=== PATIENT | female | born 1970 | race Caucasian/White ===

== ENCOUNTER → 2018-07-10 | Outpatient (CLI) | payer OTHER ==
--- NOTE | 2018-07-10 10:51 | Diagnostic Imaging Report ---
INDICATION: Right knee pain. 4 views were obtained. Findings: The alignment is normal. There is no fracture or dislocation. Soft tissues are unremarkable. IMPRESSION: No focal abnormality in the right knee. Dictated by: Dictated on workstation # [id number]
== END ==
LOC: RAD FS 10:28
PROVIDERS: ATTEND Nurse Practitioner
DX: M25.561 Pain in right knee (principal)
CPT/HCPCS: 73562

== ENCOUNTER → 2018-10-16 | Outpatient (CLI) | payer OTHER ==
--- NOTE | 2018-10-16 10:40 | Diagnostic Imaging Report ---
TIME OF CURRENT STUDY: 10/16/2018 10:29 AM REASON FOR EXAM: RIGHT KNEE GIVES WAY COMPARISON: Right knee radiograph on 07/10/2018. FINDINGS: 3 views of the right knee demonstrate no acute fracture or dislocation. No focal osseous lesions are seen. No significant degenerative changes are present in the right knee. No large joint effusion. The visualized soft tissue structures are unremarkable. There are no radiopaque foreign bodies. IMPRESSION: 1. No acute fracture or dislocation in the right knee. Dictated by: Dictated on workstation # [id number]
== END ==
LOC: RAD FS 10:07
PROVIDERS: ATTEND Family Medicine
DX: M25.361 Other instability, right knee (principal)
CPT/HCPCS: 73562

== ENCOUNTER → 2018-10-28 | Outpatient (CLI) | payer OTHER ==
--- NOTE | 2018-10-28 15:32 | Diagnostic Imaging Report ---
INDICATION: Fall and right knee pain. TIME OF EXAM: 2:20 p.m. FINDINGS: Alignment is normal. Joint spaces are well maintained. The articular surfaces are smooth. No fracture, dislocation, or effusion is seen. IMPRESSION: No acute bony abnormality is detected. Dictated by: Dictated on workstation # [id number]
== END ==
LOC: RAD FS 14:09
PROVIDERS: ATTEND Nurse Practitioner
DX: S80.01XA Contusion of right knee, initial encounter (principal); W19.XXXA Unspecified fall, initial encounter
CPT/HCPCS: 73562

== ENCOUNTER → 2019-01-14 | Outpatient (CLI) | payer OTHER ==
--- NOTE | 2019-01-14 12:26 | Diagnostic Imaging Report ---
EXAMINATION: Magnetic resonance imaging of the right knee without intravenous contrast DATE: January 14, 2019. COMPARISON: October 28, 2018. INDICATION: 48-year-old female, fall on October 02, 2018. Persistent right knee pain. TECHNIQUE: Multiplanar, multisequence non contrast enhanced MR imaging was accomplished. FINDINGS: There are significant limitations of the exam relating to low camndb-mm-txpti ratio. Sagittal sequences are nearly nondiagnostic. MENISCI: There is a tear involving the anterior horn and body of the lateral meniscus. The medial meniscus is without definite tear. LIGAMENTS AND TENDONS: The anterior and posterior cruciate ligaments are intact. The medial collateral ligament is intact. The iliotibial band, mid third lateral capsular ligament, fibular collateral ligament, biceps femoris tendon and conjoined tendon are intact. The quadriceps tendon and patella ligament are intact. JOINT: There are broad areas of full-thickness cartilage loss of the lateral compartment. There is no obvious patellofemoral or medial compartment cartilage defect. There is a moderate-sized knee joint effusion without identified intra-articular body or prominent synovitis. BONE: There is edema-like signal in the lateral tibial plateau which is most likely degenerative related although early stress related marrow changes or bone contusion would be in the differential diagnosis. There are no pathognomonic signal changes of osteonecrosis. BURSAE AND SOFT TISSUES: There is a small Barba's cyst. There is nonspecific prepatellar subcutaneous edema. IMPRESSION: 1. Significantly limited exam. 2. Tear involving the internal horn and body of the lateral meniscus. 3. No identified medial meniscal tear. 4. Intact anterior and posterior cruciate ligaments. Additional ligaments and tendons are intact. 5. No acute fracture. Edema like signal in the lateral tibial plateau is most likely degenerative related although early stress-related changes or bone contusion is also considered. 6. Severe lateral compartment osteoarthritis. Moderate size knee joint effusion. 7. Small Barba's cyst. Dictated by: Dictated on workstation # [id number]
== END ==
LOC: RAD 09:55
PROVIDERS: ATTEND Family Medicine
DX: S83.281A Other tear of lateral meniscus, current injury, right knee, initial encounter (principal); M17.11 Unilateral primary osteoarthritis, right knee; M71.21 Synovial cyst of popliteal space [Baker], right knee
CPT/HCPCS: 73721

== ENCOUNTER → 2019-05-25 | Outpatient (CLI) | payer OTHER ==
--- NOTE | 2019-05-25 12:01 | Diagnostic Imaging Report ---
INDICATION: Fall with right knee pain. EXAMINATION: AP, oblique and lateral views of the right knee are obtained. FINDINGS: Since 10/28/2018, there has been further loss of lateral compartment joint space with associated spurring, laterally. There is also mild subchondral sclerosis involving the lateral tibial plateau. No acute fracture or malalignment is identified. There may be mild joint effusion. IMPRESSION: Mild joint effusion with progressive cartilage loss and degenerative change in the lateral compartment of the right knee joint. Dictated by: Dictated on workstation # [id number]
== END ==
LOC: RAD FS 11:35
PROVIDERS: ATTEND Nurse Practitioner
DX: M17.11 Unilateral primary osteoarthritis, right knee (principal); M25.461 Effusion, right knee
CPT/HCPCS: 73562

== ENCOUNTER → 2019-06-09 | Outpatient (CLI) | payer BC ==
--- NOTE | 2019-06-09 14:29 | Diagnostic Imaging Report ---
INDICATION: Knee pain status post recent fall. COMPARISON: 05/25/2019 FINDINGS: Three radiographic views of the right knee were obtained and show no evidence of acute fracture or dislocation. Osseous structures are intact. Joint spaces are maintained. Note is made however of jjzb-ux-kwodcfre degenerative changes consistent primarily of joint space narrowing of the lateral tibiofemoral compartment. There is also mild likely degenerative lateral subluxation of the tibia in respect to the distal femur. No large joint effusion is seen. No unexpected radiopaque foreign bodies are identified. IMPRESSION: 1. No acute fracture or dislocation of the right knee. 2. Mild osteoarthritic changes. Dictated by: Dictated on workstation # [id number]
== END ==
LOC: RAD FS 14:06
PROVIDERS: ATTEND Nurse Practitioner
DX: S80.01XA Contusion of right knee, initial encounter (principal); M17.11 Unilateral primary osteoarthritis, right knee; Z91.81 History of falling
CPT/HCPCS: 73562

== ENCOUNTER 2020-01-26 19:10 | Emergency (ER) | payer BC ==
[2020-01-26] MEDS ORDERED: LIDOCAINE 1% INJ 20 ML 20 ML VIAL INJ ONE (20:45)
[2020-01-26] MEDS ORDERED: TRIM/SULFAMETH 160/800 (SEPTRA DS) TAB PO ONE (20:45)
--- NOTE | 2020-01-26 20:50 | ED General ---
General Chief Complaint: Bite-Animal/Human/Insect Stated Complaint: DOG BITE ON LT HAND Nursing Triage Note: Pt seen at urgent care for a dog bite and sent to ER. Bite is to left hand Nursing Sepsis Screen: No Definite Risk Source of Information: Patient Exam Limitations: No Limitations History of Present Illness Date Seen by Provider: Jan 26, 2020 Time Seen by Provider: 20:01 Initial Comments Patient presents ER by private conveyance from urgent care with chief complaint that she had a dog bite from her own dog approximately an hour prior to arrival. She went to urgent care and they cleaned her up and she felt she wanted to come the ER for further evaluation. She has some pain and swelling between her third and fourth fingers on her left hand and laceration superficial. Full range of motion of her hand and fingers. She says her dog is not up-to-date on vaccinations. Her plan is to have the dog destroyed tomorrow. Allergies and Home Medications Allergies Coded Allergies: baclofen (Verified Allergy, Unknown, 01/26/20) Patient Home Medication List Home Medication List Reviewed: Yes Review of Systems Review of Systems Constitutional: No chills, No fever EENTM: No ear pain, No eye pain Respiratory: No cough, No short of breath Cardiovascular: No edema, No syncope Gastrointestinal: No abdominal pain, No constipation Musculoskeletal: see HPI; No back pain; joint pain Skin: see HPI All Other Systems Reviewed Negative Unless Noted: Yes Past Gvhinaj-Tffcxe-Pcttnf Hx Patient Social History Alcohol Use: Denies Use Recreational Drug Use: No Smoking Status: Current Everyday Smoker Type Used: Cigarettes 2nd Hand Smoke Exposure: No Recent Foreign Travel: No Contact w/Someone Who Travel: No Recent Infectious Disease Expo: No Recent Hopitalizations: No Physical Abuse: No Sexual Abuse: No Past Medical History Surgeries: Yes Section, Gallbladder, Hysterectomy Respiratory: No Cardiac: No Neurological: No Genitourinary: No Gastrointestinal: No Musculoskeletal: No Endocrine: No HEENT: No Cancer: No Psychosocial: Yes Anxiety, Bipolar, Depression Integumentary: No Blood Disorders: No Physical Exam Vital Signs Vital Signs - First Documented 01/26/20 19:16 Temp 36.9 Pulse 93 Resp 18 B/P (MAP) 152/90 (110) Pulse Ox 98 O2 Delivery Room Air Capillary Refill : Less Than 3 Seconds Height, Weight, BMI Height: '" Weight: lbs. oz. kg; BMI Method: General Appearance: No Apparent Distress, WD/WN Eyes: Bilateral Eye Normal Inspection, Bilateral Eye PERRL, Bilateral Eye EOMI HEENT: PERRL/EOMI, Pharynx Normal, Moist Mucous Membranes Neck: Full Range of Motion, Normal Inspection Respiratory: No Accessory Muscle Use, No Respiratory Distress Cardiovascular: Regular Rate, Rhythm, No Edema, Normal Peripheral Pulses Extremity: Normal Capillary Refill Neurologic/Psychiatric: Alert, Oriented x3, No Motor/Sensory Deficits, Normal Mood/Affect Skin: Other (dried, superficial abrasions on the dorsum of her left hand. Between her third and fourth finger is a 1 inch long superficial linear laceration at the base of the fingers. No foreign debris seen.) Procedures/Interventions Wound Location: Upper Extremities Other Wound Location Left hand between the third and fourth digit Wound Length (cm): 3 Wound's Depth, Shape: linear, sub Q Irrigated w/ Saline (ccs): 200 Betadine Prep?: Yes (chlorhexidine prep) Anesthesia: 1% Lidocaine Volume Anesthetic (ccs): 5 Wound Debrided: minimal Suture: Ethlion Suture Size: 4-0 Number of Sutures: 3 Layer Closure?: 1 Sterile Dressing Applied?: Yes Progress/Results/Core Measures Suspected Sepsis Recent Fever Within 48 Hours: No Infection Criteria Present: None New/Unexplained Altered Menta: No Sepsis Screen: No Definite Risk SIRS Temperature: Pulse: 93 Respiratory Rate: 18 Blood Pressure 152 /90 Mean: 110 Results/Orders My Orders Orders - SHANEKA ONOFRE Sulfamethoxazole/Trimet Ds Tab (Bactrim (01/26/20 20:45) Lidocaine 1% Inj 20 Ml (Xylocaine 1% Inj (01/26/20 20:45) Hand 3 View Left (01/26/20 20:33) Medications Given in ED Current Medications Medications Dose Ordered Sig/Ra Route Start Time Stop Time Status Last Admin Dose Admin Trimethoprim/ Sulfamethoxazole 1 ea ONCE ONCE PO 01/26/20 20:45 01/26/20 20:46 DC 01/26/20 20:49 1 EA Vital Signs/I&O 01/26/20 19:16 Temp 36.9 Pulse 93 Resp 18 B/P (MAP) 152/90 (110) Pulse Ox 98 O2 Delivery Room Air Capillary Refill : Less Than 3 Seconds Blood Pressure Mean: 110 Progress Note : Time: 20:46 Progress Note We discussed an appropriate observation course for her dog and she says she will either observe her have it put up with the vet to be observed for the next 10 days. Plan to clean the wound thoroughly with chlorhexidine, sterile saline and give her some Bactrim and close the skin. We'll get a plain film to rule out fractured tooth or other foreign object. Diagnostic Imaging Diagonstic Imaging: Xray Plain Films/CT/US/NM/MRI: hand (left) Comments NAME: EMIL RIVERA [facility] REC#: [id number] PT STATUS: REG ER : 1970 PHYSICIAN: SHANEKA ONOFRE MD ADMIT DATE: 01/26/20/ER FS Draft Date of Exam:01/26/20 HAND 3 VIEW LEFT INDICATION: Trauma, dog bite. COMPARISON: None available. TECHNIQUE: 3 views of the left hand. FINDINGS: No acute fracture or traumatic malalignment. Joint spaces are preserved. No radiopaque foreign body. There is a small amount of soft tissue gas along the dorsal aspect of the hand at the level of the metacarpal heads. IMPRESSION: 1. No acute fracture. 2. No radiopaque foreign body associated with the soft tissue gas in the dorsal aspect of the hand. Dictated on workstation # [id number] Dict: 01/26/202058 Trans: 01/26/202100 [facility] [id number] Interpreted by: KARINA HARPER MD Electronically signed by: Reviewed: Reviewed by Me Departure Impression Primary Impression: Dog bite Qualified Codes: W54.0XXA - Bitten by dog, initial encounter Disposition: 01 HOME, SELF-CARE Condition: Stable Departure-Patient Inst. Decision time for Depature: 21:04 Referrals: HIWOT FOSTER MD (PCP/Family) Primary Care Physician Patient Instructions: Animal Bites (DC) Add. Discharge Instructions: Please observe the dog for the next 10 days. If it starts having any odd, antisocial behaviors and bring it to the attention of animal control and immediately return to the nearest ER for rabies vaccination. Keep the wound clean with regular soap and water only. Triple antibiotic ointment or Vaseline over the stitches. Change the dressing at least twice daily or more frequently if it becomes soiled. For the swelling you can elevate the hand above the level of your heart and use an ice pack. Bactrim one tablet twice a day for the next week to prevent infection. Return to the ER in 7-10 days to have the sutures removed. Return to the ER or your doctor sooner if you start to see redness going up your hand or you develop fever, vomiting etc. Tylenol 1000 mg every 8 hours as necessary for pain. Ibuprofen 800 mg every 8 hours as necessary for pain. All discharge instructions reviewed with patient and/or family. Voiced understanding. Scripts Sulfamethoxazole/Trimethoprim (Bactrim Ds Tablet) 1 Each Tablet 1 EACH PO BID PRN for bid for 7 Days, #14 TAB 0 Refills Prov: SHANEKA ONOFRE 01/26/20 SHANEKA ONOFRE Jan 26, 2020 20:50
--- NOTE | 2020-01-26 21:01 | Diagnostic Imaging Report ---
INDICATION: Trauma, dog bite. COMPARISON: None available. TECHNIQUE: 3 views of the left hand. FINDINGS: No acute fracture or traumatic malalignment. Joint spaces are preserved. No radiopaque foreign body. There is a small amount of soft tissue gas along the dorsal aspect of the hand at the level of the metacarpal heads. IMPRESSION: 1. No acute fracture. 2. No radiopaque foreign body associated with the soft tissue gas in the dorsal aspect of the hand. Dictated by: Dictated on workstation # [id number]
[2020-01-26] MEDS ORDERED: SULF1TAB35 PO (21:07)
[2020-01-26 21:15] VITALS: BP 146/87
== END 2020-01-26 21:14 | disposition home or self-care (01) ==
LOC: EDUNIT# 19:10 → ER FS 19:11
DX: S61.452A Open bite of left hand, initial encounter (principal); F17.210 Nicotine dependence, cigarettes, uncomplicated; Z88.8 Allergy status to other drugs, medicaments and biological substances; W54.0XXA Bitten by dog, initial encounter
CPT/HCPCS: 12001; 73130

== ENCOUNTER 2020-02-05 20:57 | Emergency (ER) | payer BC ==
[~2020-02-05] VITALS: Ht 162 cm; Wt 135.0 kg
[~2020-02-05 20:57] MED LIST: SULF1TAB35 PO
--- NOTE | 2020-02-05 21:13 | ED Lower Extremity ---
General Chief Complaint: Lower Extremity Stated Complaint: L ANKLE FX Source: patient Exam Limitations: no limitations History of Present Illness Date Seen by Provider: Feb 05, 2020 Time Seen by Provider: 20:57 Initial Comments The patient presents to the ER by EMS with chief complaint of she was eating a chicken nuggets standing up in her kitchen and she was choking and then she fell twisting her left ankle. She denies loss of consciousness or striking her head. She's not on blood thinners. No previous injury or surgeries to her left ankle. Rates her pain as a greater than 10 out of 10 and EMS initiated an IV in her left antecubital space and gave her 100 g of fentanyl en route which brought her pain down to a 7 out of 10. The patient has good pulses per EMS and sensation is intact but she claims she cannot move her ankle. Allergies and Home Medications Allergies Coded Allergies: baclofen (Verified Allergy, Unknown, 01/26/20) Home Medications Sulfamethoxazole/Trimethoprim 1 Each Tablet, 1 EACH PO BID PRN for bid Prescribed by: SHANEKA ONOFRE on 01/26/202106 Patient Home Medication List Home Medication List Reviewed: Yes Review of Systems Constitutional: No chills, No fever EENTM: No ear discharge, No ear pain Respiratory: No cough, No short of breath Cardiovascular: No edema, No Hx of Intervention Gastrointestinal: No abdominal pain, No nausea Genitourinary: No discharge, No dysuria Musculoskeletal: see HPI All Other Systems Reviewed Negative Unless Noted: Yes Past Uxsndqo-Ilichx-Rjizox Hx Patient Social History Alcohol Use: Denies Use Recreational Drug Use: No Smoking Status: Current Everyday Smoker Type Used: Cigarettes 2nd Hand Smoke Exposure: No Recent Hopitalizations: No Past Medical History Surgeries: Yes Section, Gallbladder, Hysterectomy Respiratory: No Cardiac: No Neurological: No Genitourinary: No Gastrointestinal: No Musculoskeletal: No Endocrine: No HEENT: No Cancer: No Psychosocial: Yes Anxiety, Bipolar, Depression Integumentary: No Blood Disorders: No Physical Exam Vital Signs Vital Signs - First Documented 02/05/20 02/05/20 21:12 23:33 Temp 36.1 Pulse 71 Resp 16 B/P (MAP) 130/83 (99) Pulse Ox 97 O2 Delivery Room Air O2 Flow Rate 2.00 Capillary Refill : Height, Weight, BMI Height: '" Weight: lbs. oz. kg; BMI Method: General Appearance: WD/WN, moderate distress HEENT: PERRL/EOMI, pharynx normal Neck: full range of motion, normal inspection Cardiovascular: normal peripheral pulses, regular rate, rhythm Respiratory: no respiratory distress, no accessory muscle use Ankles: right ankle non-tender, right ankle normal inspection; bilateral ankle normal range of motion; right ankle no evidence of injury; left ankle bone tenderness (lateral malleolus posteriorly tender to palpation), left ankle joint effusion (mild lateral), left ankle pain, left ankle soft tissue tenderness; bilateral ankle other (dorsal pedal pulses palpable 2 out of 4 symmetric bilaterally) Feet: bilateral foot non-tender, bilateral foot normal inspection, bilateral foot normal range of motion, bilateral foot no evidence of injury Neurologic/Tendon: normal sensation, normal motor functions, normal tendon functions, responds to pain, no evidence tendon injury Neurologic/Psychiatric: auctioneer art II-XII nml as tested, alert, normal mood/affect, oriented x 3 Skin: normal color, warm/dry Procedures/Interventions Suture Size: 4-0 Progress/Results/Core Measures Results/Orders My Orders Orders - SHANEKA ONOFRE Fentanyl Injection (Sublimaze Injection (02/05/20 21:15) Ankle, Left, 3 Views (02/05/20 21:11) Medications Given in ED Current Medications Medications Dose Ordered Sig/Ra Route Start Time Stop Time Status Last Admin Dose Admin Fentanyl Citrate 50 mcg ONCE ONCE IVP 02/05/20 21:15 02/05/20 21:16 DC 02/05/20 21:45 50 MCG Vital Signs/I&O 02/05/20 02/05/20 02/05/20 21:12 22:42 23:33 Temp 36.1 Pulse 71 86 67 Resp 16 14 B/P (MAP) 130/83 (99) 130/83 114/81 Pulse Ox 97 98 96 O2 Delivery Room Air Room Air Nasal Cannula O2 Flow Rate 2.00 Progress Progress Note #1: Time: 22:19 Progress Note No fracture evident on imaging. We did check her chances prescription management software which did demonstrate she receives over 80 tablets of hydrocodone and over 50 tablets of alprazolam every month from her primary care provider. We'll put her in a walking boot and encourage her to follow up with orthopedic surgery or her primary care doctor in 1-2 weeks. Progress Note #2: Time: 23:00 Progress Note The patient advises that she thinks the catheter broke off in her from her left antecubital space IV. He has soft IV catheter was pulled and only about 1-2 mm of mangled soft catheter was intact. We could not palpate catheter in her proximal vein. We laid ultrasound on and could easily visualize a foreign object approximately one to 2 centimeters long just proximal to the insertion site. We did discuss the case with Dr. De La Torre who says he is not familiar with this type of a cut down and would recommend we refer her to vascular surgery. Diagnostic Imaging Diagonstic Imaging: Xray Plain Films/CT/US/NM/MRI: ankle (left) Comments NAME: EMIL RIVERA [facility] REC#: [id number] PT STATUS: REG ER : 1970 PHYSICIAN: SHANEKA ONOFRE MD ADMIT DATE: 02/05/20/ER Signed Date of Exam:02/05/20 ANKLE, LEFT, 3 VIEWS INDICATION: Fall, left ankle pain. EXAMINATION: Four views of the left ankle were obtained. FINDINGS: No fracture, dislocation or other acute abnormality. There is swelling laterally. IMPRESSION: Swelling. No fracture is seen. Dictated by: Dictated on workstation # [id number] Dict: 02/05/202130 Trans: 02/05/202150 [facility] [id number] Interpreted by: ESTHELA ORDONEZ MD Electronically signed by: ESTHELA ORDONEZ MD 02/05/202150 Reviewed: Reviewed by Me Departure Impression Primary Impression: Left ankle sprain Qualified Codes: S93.402A - Sprain of unspecified ligament of left ankle, initial encounter Additional Impression: Foreign body Disposition: XFER SHT-TRM HOSP Condition: Stable Transfer Transfer Reason: Exceeds level of care (needs vascular Surgery consult) Time Spoke to Accepting Phy: 23:[address] Sanchez [facility] at [facility] agrees to take the patient. Dr Aquino, ED accepts the Pt as a Trauma Pt. Transfer Time: 00:30 Transfer Facility: [facility]. Method of Transfer: EMS Departure-Patient Inst. Referrals: HIWOT FOSTER MD (PCP/Family) Primary Care Physician Patient Instructions: Ankle Sprain (DC) Add. Discharge Instructions: Apply ice every 2 hours while awake for the first 2 days to your ankle for swelling and pain. Topical creams such as icy hot or Biofreeze can be helpful. Tylenol and ibuprofen as necessary for pain. Elevate your ankle above the level of your heart if you have increased swelling and pain. Follow-up in 7-10 days with your primary care provider if you are still having significant pain or disability. You may wear the walking boot for the first week if it is helpful for pain. You may downgrade it to just an elastic wrap such as an Jesus bandage as your foot feels better. All discharge instructions reviewed with patient and/or family. Voiced understanding. SHANEKA ONOFRE Feb 05, 2020 21:13
[2020-02-05] MEDS ORDERED: fentaNYL INJECTION 100 MCG/2 ML AMP IVP ONE (21:15)
--- NOTE | 2020-02-05 21:38 | Diagnostic Imaging Report ---
INDICATION: Fall, left ankle pain. EXAMINATION: Four views of the left ankle were obtained. FINDINGS: No fracture, dislocation or other acute abnormality. There is swelling laterally. IMPRESSION: Swelling. No fracture is seen. Dictated by: Dictated on workstation # [id number]
[2020-02-05 22:42] VITALS: BP 130/83
--- NOTE | 2020-02-05 23:00 | NUR ---
During removal of the patients IV during discharge it was noted that the catheter appeared shorter than normal. Dr. Del Castillo notified.
--- NOTE | 2020-02-05 23:20 | NUR ---
Venous tourniquet loosly applied to the patients left upper extremity. Patient tolerating well.
--- NOTE | 2020-02-05 23:28 | NUR ---
Report called to [facility] for patient transfer.
--- NOTE | 2020-02-05 23:32 | NUR ---
Justina dale in [facility] - 02/05/20 at 2333 by [id number] Patient report given to Jayden Ryan RN.
--- NOTE | 2020-02-05 23:33 | NUR ---
Patient report given to Jayden Umaña RN.
== END 2020-02-05 22:42 | disposition short-term general hospital (02) ==
LOC: EDUNIT# 20:57 → ER 20:59
DX: S93.492A Sprain of other ligament of left ankle, initial encounter (principal); F17.210 Nicotine dependence, cigarettes, uncomplicated; Z88.8 Allergy status to other drugs, medicaments and biological substances; X50.1XXA Overexertion from prolonged static or awkward postures, initial encounter
CPT/HCPCS: 73610; 99282; L2114

== ENCOUNTER → 2020-08-16 | Outpatient (CLI) | payer BC | LOC: LAB FS 10:30 | PROVIDERS: ATTEND Orthopaedic Surgery | DX: Z01.812 Encounter for preprocedural laboratory examination (principal); Z20.822 Contact with and (suspected) exposure to COVID-19 | CPT/HCPCS: 87635 ==

== ENCOUNTER → 2020-09-12 | Outpatient (CLI) | payer BC ==
--- NOTE | 2020-09-12 10:38 | Diagnostic Imaging Report ---
INDICATION: Talus fracture followup. FINDINGS: Three views of the left foot show a tiny cortical avulsion off of the dorsal distal aspect of the talus. This was not apparent on the previous exam dated 02/05/2020. No other abnormality is seen. IMPRESSION: Small cortical fracture dorsal aspect of the distal talus. Dictated by: Dictated on workstation # [id number]
== END ==
LOC: RAD FS 10:16
PROVIDERS: ATTEND Nurse Practitioner
DX: S92.125D Nondisplaced fracture of body of left talus, subsequent encounter for fracture with routine healing (principal); X58.XXXD Exposure to other specified factors, subsequent encounter
CPT/HCPCS: 73630

== ENCOUNTER 2021-02-05 13:10 | Emergency (ER) | payer BC ==
[~2021-02-05] VITALS: Ht 162 cm; Wt 136.0 kg
[~2021-02-05 13:10] MED LIST changes: -SULF1TAB35 PO; +SULF1TAB38 PO
--- OUTSIDE RECORDS SUMMARY | 2021-02-05 13:14 | XMS REPORT | Encounter Summary ---
Author Author [facility] Organization [facility] Address Unknown Phone Unavailable Care Team Providers Care Calculus Teacher Name Role Phone Rubén Bailey MD PCP Encounter Details Care Team Description [place] [address] [place] [id number] [phone] Postoperative hypothyroidism 12/26/2020 Orders Only Endocrinology: [facility] [address] [place] [address] [phone] Social History Date Tobacco Use Types Packs/Day Years Used Former Smoker Cigarettes 0.5 15 Smokeless Tobacco: Never Used Comments Alcohol Use Standard Drinks/Week No 0 (1 standard drink = 0.6 o z pure alcohol) Sex Assigned at Date Recorded Female 09/20/2020 8:55 AM CDT Date Recorded COVID-19 Exposure Response 12/02/2020 1:17 PM CDT In the last month, have you been in contact with No / Unsure someone who was confirmed or suspected to have Coronavirus / COVID-19? documented as of this encounter Functional Status Date of Assessment Functional Status Response 01/27/2019 Does the patient have a hearing impairment: No 01/27/2019 Does the patient have a visual impairment: Yes 01/27/2019 Does the patient have impaired ambulation: No 01/27/2019 Does the patient have an activity of daily living No (ADL) impairment: 01/27/2019 Does the patient have an instrumental activity of No daily living (IADL) impairment: Date of Assessment Cognitive Status Response 01/27/2019 Does the patient have a cognitive impairment: No documented as of this encounter Plan of Treatment Not on filedocumented as of this encounter Procedures Comments Procedure Name Priority Date/Time Associated Diag nosis TSH WITH FREE T4 REFLEX Routine 12/22/2020 Postop erative hypothyroidism documented in this encounter Results * TSH WITH FREE T4 REFLEX (12/22/2020) TSH Thyroid 0.38 (L) OTHER OUTSIDE Screen LAB T4-Free 1.2 OTHER OUTSIDE LAB Specimen Blood - Blood Narrative Performed At This result has an attachment that is n ot available. 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
--- OUTSIDE RECORDS SUMMARY | 2021-02-05 13:14 | XMS REPORT | Encounter Summary ---
Author Author [facility] Organization [facility] Address Unknown Phone Unavailable Care Team Providers Care Mcat Tutor Name Role Phone Rubén Bailey MD PCP Reason for Visit * Reason Onset Date Comments Post Procedure 12/08/2020 Encounter Details Care Team Description Date Type Department Remy Shah MD [address] [facility] [place] [address] Post Procedure 12/08/2020 Telephone Comp Spine Ctr Intervent'nl Pain: [facility]: [address] [place] [address] Social History Date Tobacco Use Types Packs/Day [...] impairment: No documented as of this encounter Miscellaneous Notes * Telephone Encounter - Delia Barrientos BSN - 12/08/2020 12:33 PM CDT Patient calling in stating that she is having some problems after her RFA comple jhony 12/02 and would like to talk to Dr. Shah about them. Requesting return call. Attempted to reach patient. LVM with patient instructing her that if the problem is pain that it can take up to 1 month for therapeutic relief of pain. Asked bennie longoria to please call back if having other issues letting me know specifics probl ems and I can relay to Dr. Shah. Provided patient with direct voicemail line num andrew documented in this encounter Plan of Treatment Not on filedocumented as of this encounter Visit Diagnoses Not on filedocumented in this encounter Additional Health Concerns Assessment Noted Time PHQ-9 Depression Total Score: 0 11/25/2018 1:13 PM CDT A fall risk assessment has been completed for the pat ient 04/12/2020 2:56 PM PHOTOGRAPHIC EDITOR PHQ-2 Depression Total Score: 2 05/04/2019 10:01 AM PHOTOGRAPHIC EDITOR documented as of this encounter
--- OUTSIDE RECORDS SUMMARY | 2021-02-05 13:14 | XMS REPORT | Encounter Summary ---
Author Author [facility] Organization [facility] Address Unknown Phone Unavailable Care Team Providers Care Managing Attorney Name Role Phone Rubén Bailey MD PCP Reason for Visit * Reason Onset Date Comments Pain 01/05/2021 Encounter Details Care Team Description Date Type Department Remy Shah MD [address] [facility] [place] [address] Pain 01/05/2021 Telephone Comprehensive Sp[facility] Ctr Intervent'nl Pain: [facility] [place] [address] [place] [address] Social History Date Tobacco Use Types Packs/Day Years Used Former Smoker Cigarettes 0.5 15 Smokeless Tobacco: Never Used Comments Alcohol Use Standard Drinks/Week No 0 (1 standard drink = 0.6 o z pure alcohol) Sex Assigned at Date Recorded Female 09/20/2020 8:55 AM CDT documented as of this encounter Functional Status [...] Telephone Encounter - Delia Barrientos BSN - 01/05/2021 2:37 PM CDT Patient calling in stating that she has been having pain from area of RFA and de scribes pain as shooting/stabbing that radiates bilaterally to both legs. Jose t stated her stated her back feels warm but denies any redness, drainage , or fever. Instructed patient I can get her scheduled for a FUV to discuss with Dr. Shah. A ppointment scheduled with patient documented in this encounter Plan of Treatment Not on filedocumented as of this encounter Visit Diagnoses Not on filedocumented in this encounter Additional Health Concerns Assessment Noted Time PHQ-9 Depression Total Score: 0 11/25/2018 1:13 PM CDT A fall risk assessment has been completed for the pat ient 04/12/2020 2:56 PM STORAGE SOLUTIONS ARCHITECT PHQ-2 Depression Total Score: 2 05/04/2019 10:01 AM STORAGE SOLUTIONS ARCHITECT documented as of this encounter
--- OUTSIDE RECORDS SUMMARY | 2021-02-05 13:14 | XMS REPORT | Encounter Summary ---
Author Author [facility] Organization [facility] Address Unknown Phone Unavailable Care Team Providers Care Lock Expert Name Role Phone Rubén Bailey MD PCP Reason for Visit * Reason Comments Medication Refill Encounter Details Care Team Description Date Type Department Remy Shah MD [address] [facility] [place] [address] 12/27/2020 Refill Comprehensive Sp[facility]tr Intervent'nl Pain: Main [place] [address] [facility] [address] [place] [address] Social History Date Tobacco Use [...] impairment: No documented as of this encounter Ordered Prescriptions Start Date End Date Prescription Sig Dispensed Refills 12/28/2020 topiramate (TOPAMAX) 50 TAKE 1 TABLET 60 tablet 1 mg tablet BY MOUTH TWICE DAILY documented in this encounter Plan of Treatment Not on filedocumented as of this encounter Visit Diagnoses Not on filedocumented in this encounter Discontinued Medications Start Date End Date Medication Sig Discontinue Reason 10/14/2020 12/28/2020 topiramate (TOPAMAX) 50 TAKE 1 mg tablet TABLET BY MOUTH TWICE DAILY documented as of this encounter Additional Health Concerns Assessment Noted Time PHQ-9 Depression Total Score: 0 11/25/2018 1:13 PM CDT A fall risk assessment has been completed for the pat ient 04/12/2020 2:56 PM WELL TENDER PHQ-2 Depression Total Score: 2 05/04/2019 10:01 AM WELL TENDER documented as of this encounter
[2021-02-05] MEDS ORDERED: IBUPROFEN 600 MG (MOTRIN) TAB PO ONE (13:30)
[2021-02-05] MEDS ORDERED: CLINDAMYCIN 150 MG (CLEOCIN) CAP PO ONE (13:30)
[2021-02-05] MEDS ORDERED: IBUPROFEN TABLET 200 MG TAB PO ONE (13:30)
--- NOTE | 2021-02-05 14:01 | ED Integumentary General ---
General Chief Complaint: Skin/Wound Problems Stated Complaint: NECK ABSCESS Nursing Triage Note: PT HAS A RED SWOLLEN AREA ON THE BACK OF HER NECK AND HEAD WHERE SHE SHAVES HER HAIR. Source: patient Exam Limitations: no limitations History of Present Illness Date Seen by Provider: Feb 05, 2021 Time Seen by Provider: 12:15 Initial Comments Patient is 50-year-old female who presents with redness swelling and i tenderness of her occipital scalp. Symptoms began after having her head shaven by her significant other yesterday. No history of MRSA. No fever chills, na usea vomiting or sweats. No other acute symptoms or complaints. Patient took oxycodone Cotton prior to ED arrival with improved symptoms. Patient is nondiabetic.. Timing/Duration: this morning Severity: mild Location: scalp Possible Cause: other Modifying Factors: improves with other Associated Symptoms: other Allergies and Home Medications Allergies Coded Allergies: baclofen (Verified Allergy, Unknown, 01/26/20) Patient Home Medication List Home Medication List Reviewed: Yes Sulfamethoxazole/Trimethoprim (Bactrim Ds Tablet) 1 Each Tablet, 1 EACH PO BID PRN for bid Prescribed by: SHANEKA ONOFRE on 01/26/202106 Review of Systems Review of Systems Constitutional: see HPI EENTM: see HPI Respiratory: see HPI Cardiovascular: see HPI Gastrointestinal: see HPI Genitourinary: see HPI Musculoskeletal: see HPI Skin: see HPI Psychiatric/Neurological: See HPI Endocrine: See HPI Hematologic/Lymphatic: See HPI All Other Systems Reviewed Negative Unless Noted: Yes Past Wsdxvwq-Ulxtzr-Utewrg Hx Immunizations Up To Date First/Initial COVID19 Vaccinat: DECEMBER 2020 COVID19 Vaccine Catering And Events Manager: ZAINAB Past Medical History Surgeries: Yes Section, Gallbladder, Hysterectomy Respiratory: No Cardiac: No Neurological: No Genitourinary: No Gastrointestinal: No Musculoskeletal: No Endocrine: No HEENT: No Cancer: No Psychosocial: Yes Anxiety, Bipolar, Depression Integumentary: No Blood Disorders: No Physical Exam Vital Signs Vital Signs - First Documented 02/05/21 13:14 Temp 36.4 Pulse 85 Resp 20 B/P (MAP) 132/94 (107) Pulse Ox 95 O2 Delivery Room Air Capillary Refill : Less Than 3 Seconds General Appearance: no apparent distress HEENT: other (Mild erythema swelling and redness of occipital scalp. No induration or fluctuance. No weeping or streaking.) Neck: non-tender, full range of motion, supple Cardiovascular: regular rate, rhythm Procedures/Interventions Suture Size: 4-0 Progress/Results/Core Measures Results/Orders My Orders Orders - JESSICA MANN DO Clindamycin Capsule (Cleocin Capsule) (02/05/21 13:30) Ibuprofen Tablet (Motrin Tablet) (02/05/21 13:30) Ibuprofen Tablet (Motrin Tablet) (02/05/21 13:30) Medications Given in ED Current Medications Medications Dose Ordered Sig/Ra Route Start Time Stop Time Status Last Admin Dose Admin Clindamycin HCl 300 mg ONCE ONCE PO 02/05/21 13:30 02/05/21 13:31 DC 02/05/21 13:32 300 MG Ibuprofen 600 mg ONCE ONCE PO 02/05/21 13:30 02/05/21 13:31 DC 02/05/21 13:33 600 MG Vital Signs/I&O 02/05/21 13:14 Temp 36.4 Pulse 85 Resp 20 B/P (MAP) 132/94 (107) Pulse Ox 95 O2 Delivery Room Air Blood Pressure Mean: 107 Departure Communication (Admissions) Cellulitis of occipital scalp. Antibiotics and NSAIDs given. Recommendations are continued therapeutic and supportive care with watchful waiting and close PCP follow-up. Return precautions reviewed. Patient verbalizes understanding agreement discharge instructions prior to departure. Impression Primary Impression: Cellulitis of scalp Disposition: HOME, SELF-CARE Condition: Stable Departure-Patient Inst. Decision time for Depature: 14:00 Referrals: HIWOT FOSTER MD (PCP/Family) Primary Care Physician Patient Instructions: Cellulitis (Skin Infection), Adult ED Add. Discharge Instructions: Your evaluated in the emergency department for tenderness swelling and redness of your your lower scalp. Your symptoms are consistent with a soft tissue skin infection. Please take ibuprofen 3 times daily for pain and complete full course of antibiotics. Take next dose of clindamycin prior to bedtime. Continue to monitor and take photos of your rash daily and follow-up with your PCP tomorrow afternoon. In the meantime if you develop new or worsening symptoms, return to the emergency department. All discharge instructions reviewed with patient and/or family. Voiced underst anding. JESSICA MANN DO Feb 05, 2021 14:01
[2021-02-05 14:03] VITALS: BP 132/94
[2021-02-05] MEDS ORDERED: CLIN-144 PO (14:03)
== END 2021-02-05 14:07 | disposition home or self-care (01) ==
LOC: EDUNIT# 13:10 → ER FS 13:12
DX: L03.811 Cellulitis of head [any part, except face] (principal)
CPT/HCPCS: 99283

== ENCOUNTER → 2021-08-24 | Outpatient (CLI) | payer BC ==
[~2021-08-24] MED LIST changes: +CLIN-144 PO
--- NOTE | 2021-08-24 13:59 | Diagnostic Imaging Report ---
INDICATION: Right knee pain. COMPARISON with 06/09/2019 FINDINGS: 3 views. There is moderate narrowing in the medial compartment. Hypertrophic changes are seen in the medial femoral condyle and tibial plateau. Lateral compartment is well-preserved. Patellofemoral joint shows good alignment with minimal hypertrophic changes. There are no fractures. No loose bodies are seen. 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 There has been mild progression of arthritic change when compared with the previous exam. Dictated by: Dictated on workstation # [id number]
== END ==
LOC: RAD FS 11:02
PROVIDERS: ATTEND Family Medicine
DX: M17.11 Unilateral primary osteoarthritis, right knee (principal)
CPT/HCPCS: 73562

== ENCOUNTER 2021-12-18 11:30 | Emergency (ER) | payer BC ==
[~2021-12-18] VITALS: Ht 162.5 cm; Wt 118.1 kg
[2021-12-18 12:40] LABS: BASOPHILS # (AUTO) 0.1 10^3/uL (0.0-0.1); BASOPHILS % (AUTO) 1 % (0-10); EOSINOPHILS # (AUTO) 0.2 10^3/uL (0.0-0.3); EOSINOPHILS % (AUTO) 3 % (0-10); HEMATOCRIT 45 % (35-52); HEMOGLOBIN 15.2 g/dL (11.5-16.0); LYMPHOCYTES # (AUTO) 2.1 10^3/uL (1.0-4.0); LYMPHOCYTES % (AUTO) 33 % (12-44); MEAN CORPUSCULAR HEMOGLOBIN 29 pg (25-34); MEAN CORPUSCULAR HGB CONC 34 g/dL (32-36); MEAN CORPUSCULAR VOLUME 87 fL (80-99); MEAN PLATELET VOLUME 11.2 fL (9.0-12.2); MONOCYTES # (AUTO) 0.5 10^3/uL (0.0-1.0); MONOCYTES % (AUTO) 8 % (0-12); NEUTROPHILS # (AUTO) 3.6 10^3/uL (1.8-7.8); NEUTROPHILS % (AUTO) 56 % (42-75); PLATELET COUNT 205 10^3/uL (130-400); WHITE BLOOD COUNT 6.4 10^3/uL (4.3-11.0)
--- NOTE | 2021-12-18 12:58 | Diagnostic Imaging Report ---
Indication: Low oxygen saturation. Time of Exam: 12:53 PM No prior studies are available for comparison. Heart size normal. Calcified granuloma left lower lobe and calcified lymph nodes in the mediastinum. Lungs are clear. No infiltrates are seen. There is no effusion or pneumothorax. IMPRESSION: No acute cardiopulmonary process is detected. Dictated by: Dictated on workstation # [id number]
[2021-12-18 13:11] LABS: BILIRUBIN,TOTAL 0.4 MG/DL (0.1-1.0); CALCIUM 9.3 MG/DL (8.5-10.1); CREATININE SERUM 0.89 MG/DL (0.60-1.30); POTASSIUM 4.3 MMOL/L (3.6-5.0)
[2021-12-18 13:12] LABS: ALBUMIN 3.8 GM/DL (3.2-4.5)
[2021-12-18] MEDS ORDERED: RT-ALBUTEROL/IPRATROPIUM 3 ML (DUONEB) VIAL INH ONE (13:45)
[2021-12-18] MEDS ORDERED: NYST1000 PO (15:17)
[2021-12-18] MEDS ORDERED: AZIT250T12 PO (15:17)
--- NOTE | 2021-12-18 15:17 | ED General ---
General Chief Complaint: Respiratory Problems Stated Complaint: LOW O2 Nursing Triage Note: Patient presents to the ED with c/o voice hoarsness and decreased oxygen saturation. States that since Saturday she has been losing her voice. Was seen at urgent care this morning and sent to the ED due to oxygen saturation of 88%. Denies fever, nausea, vomiting, or diarrhea. Source of Information: Patient Exam Limitations: No Limitations Allergies and Home Medications Allergies Coded Allergies: baclofen (Verified Allergy, Unknown, 01/26/20) Patient Home Medication List Clindamycin HCl (Clindamycin HCl) 300 Mg Capsule, 300 MG PO QID Prescribed by: JESSICA MANN on 02/05/21 1403 Sulfamethoxazole/Trimethoprim (Bactrim Ds Tablet) 1 Each Tablet, 1 EACH PO BID PRN for bid Prescribed by: SHANEKA ONOFRE on 01/26/202106 Past Jkryigd-Fpgokg-Eoqxkw Hx Patient Social History Tobacco Use?: Yes Tobacco type used: Cigarettes Smoking Status: Current Everyday Smoker Use of E-Cig and/or Vaping dev: No Substance use?: No Alcohol Use?: Yes Alcohol Frequency: Rarely Pt feels they are or have been: No Immunizations Up To Date First/Initial COVID19 Vaccinat: DECEMBER 2020 Second COVID19 Vaccination [place]: DECEMBER 2020 Third COVID19 Vaccination Date: DECEMBER 2020 Past Medical History Surgery/Hospitalization HX: Bipolar; Anxiety; Asthma; Depression; Thyroidectomy; Hysterectomy; Cholecysectomy; . Surgeries: Yes Section, Gallbladder, Hysterectomy Respiratory: No Cardiac: No Neurological: No Genitourinary: No Gastrointestinal: No Musculoskeletal: No Endocrine: No HEENT: No Cancer: No Psychosocial: Yes Anxiety, Bipolar, Depression Integumentary: No Blood Disorders: No Physical Exam Vital Signs Vital Signs - First Documented 12/18/21 11:32 Temp 36.2 Pulse 83 Resp 18 B/P (MAP) 131/94 (106) Pulse Ox 88 O2 Delivery Room Air Capillary Refill : Less Than 3 Seconds Height, Weight, BMI Height: '" Weight: lbs. oz. kg; 44.00 BMI Method: Procedures/Interventions Suture Size: 4-0 Progress/Results/Core Measures Suspected Sepsis SIRS Temperature: Pulse: 83 Respiratory Rate: 18 Laboratory Tests 12/18/21 12:29: White Blood Count 6.4 Blood Pressure 131 /94 Mean: 106 Laboratory Tests 12/18/21 12:29: Creatinine 0.89, Platelet Count 205, Total Bilirubin 0.4 Results/Orders Lab Results Laboratory Tests Test 12/18/21 11:55 12/18/21 12:29 12/18/21 13:47 Range/Units Influenza Type A (RT-PCR) Not Detected Not Detecte Influenza Type B (RT-PCR) Not Detected Not Detecte SARS-CoV-2 RNA (RT-PCR) Not Detected Not Detecte White Blood Count 6.4 4.3-11.0 10^3/uL Red Blood Count 5.21 H 3.80-5.11 10^6/uL Hemoglobin 15.2 11.5-16.0 g/dL Hematocrit 45 35-52 % Mean Corpuscular Volume 87 80-99 fL Mean Corpuscular Hemoglobin 29 25-34 pg Mean Corpuscular Hemoglobin Concent 34 32-36 g/dL Red Cell Distribution Width 13.5 10.0-14.5 % Platelet Count 205 130-400 10^3/uL Mean Platelet Volume 11.2 9.0-12.2 fL Immature Granulocyte % (Auto) 0 % Neutrophils (%) (Auto) 56 42-75 % Lymphocytes (%) (Auto) 33 12-44 % Monocytes (%) (Auto) 8 0-12 % Eosinophils (%) (Auto) 3 0-10 % Basophils (%) (Auto) 1 0-10 % Neutrophils # (Auto) 3.6 1.8-7.8 10^3/uL Lymphocytes # (Auto) 2.1 1.0-4.0 10^3/uL Monocytes # (Auto) 0.5 0.0-1.0 10^3/uL Eosinophils # (Auto) 0.2 0.0-0.3 10^3/uL Basophils # (Auto) 0.1 0.0-0.1 10^3/uL Immature Granulocyte # (Auto) 0.0 0.0-0.1 10^3/uL Sodium Level 140 135-145 MMOL/L Potassium Level 4.3 3.6-5.0 MMOL/L Chloride Level 105 98-107 MMOL/L Carbon Dioxide Level 25 21-32 MMOL/L Anion Gap 10 5-14 MMOL/L Blood Urea Nitrogen 14 7-18 MG/DL Creatinine 0.89 0.60-1.30 MG/DL Estimat Glomerular Filtration Rate 79 BUN/Creatinine Ratio 16 Glucose Level 91 70-105 MG/DL Calcium Level 9.3 8.5-10.1 MG/DL Corrected Calcium 9.5 8.5-10.1 MG/DL Total Bilirubin 0.4 0.1-1.0 MG/DL Aspartate Amino Transf (AST/SGOT) 39 H 5-34 U/L Alanine Aminotransferase (ALT/SGPT) 37 0-55 U/L Alkaline Phosphatase 112 40-136 U/L C-Reactive Protein 1.05 H <0.50 MG/DL Total Protein 7.0 6.4-8.2 GM/DL Albumin 3.8 3.2-4.5 GM/DL Group A Streptococcus Screen NEGATIVE NEGATIVE My Orders Orders - BILL FUNES MD Covid 19 Inhouse Test (12/18/21 11:50) Influenza A And B By Pcr (12/18/21 11:50) Cbc With Automated Diff (12/18/21 11:51) Comprehensive Metabolic Panel (12/18/21 11:51) Crp Fs (12/18/21 11:51) Ed Iv/Invasive Line Start (12/18/21 11:51) O2 (12/18/21 11:51) Monitor-Rhythm Ecg Trace Only (12/18/21 11:51) Chest Pa/Lat (2 View) (12/18/21 12:38) Rapid Strep A Screen (12/18/21 13:39) Thyroid Stimulating Hormone (12/18/21 13:39) Free T4 (Free Thyroxine) (12/18/21 13:39) Albuterol/Ipra Inhalation Soln (Duoneb I (12/18/21 13:45) Svn Small Volume Nebulizer (12/18/21 13:39) Medications Given in ED Current Medications Medications Dose Ordered Sig/Ra Route Start Time Stop Time Status Last Admin Dose Admin Albuterol/ Ipratropium 3 ml ONCE ONCE INH 12/18/21 13:45 12/18/21 13:46 DC 12/18/21 13:49 3 ML Vital Signs/I&O 12/18/21 11:32 Temp 36.2 Pulse 83 Resp 18 B/P (MAP) 131/94 (106) Pulse Ox 88 O2 Delivery Room Air Capillary Refill : Less Than 3 Seconds Blood Pressure Mean: 106 Departure Impression Primary Impression: Pharyngitis Qualified Codes: J02.9 - Acute pharyngitis, unspecified Additional Impression: COPD exacerbation Disposition: 01 HOME, SELF-CARE Condition: Improved Departure-Patient Inst. Decision time for Depature: 15:13 Referrals: HIWOT FOSTER MD (PCP/Family) Primary Care Physician Patient Instructions: COPD Exacerbation, Adult ED, Sore Throat, Adult ED Add. Discharge Instructions: Call your doctor to schedule a follow-up appointment for later this week. At that appointment have your vital signs checked and review results from your ER visit. Some thyroid lab tests were pending at the time of your discharge from the emergency room. Complete your medications as prescribed. Work toward quitting smoking completely as rapidly as possible. Seek assistance from your primary care provider if needed. Consider testing for sleep apnea as your oxygen level dropped down to 92% while you were asleep. Use your nebulizer treatments up to every 4 hours as needed for shortness of breath. Return to care if you have worsening symptoms despite following these instructions. All discharge instructions reviewed with patient and/or family. Voiced understanding. Scripts Azithromycin (Azithromycin) 250 Mg Tablet 250 MG PO UD, #6 TAB TAKE 2 TABLETS ON DAY ONE THEN TAKE 1 TABLET DAILY FOR FOUR MORE DAYS Prov: BILL FUNES MD 12/18/21 Nystatin (Nystatin) 100,000 Unit/Ml Oral.susp 5 ML PO QID, #140 ML Swish, gargle, and swallow. Prov: BILL FUNES MD 12/18/21 Copy Copies To 1: HIWOT FOSTER MD, JOSHUA T MD Dec 18, 2021 15:17
[2021-12-18 15:24] VITALS: BP 135/87
[2021-12-18 22:49] LABS: FREE T4 (FREE THYROXINE) 1.27 NG/DL (0.70-1.48)
== END 2021-12-18 15:22 | disposition home or self-care (01) ==
LOC: EDUNIT# 11:30 → ER FS 11:32
DX: J44.1 Chronic obstructive pulmonary disease with (acute) exacerbation (principal); J02.9 Acute pharyngitis, unspecified; F17.210 Nicotine dependence, cigarettes, uncomplicated; Z20.822 Contact with and (suspected) exposure to COVID-19
CPT/HCPCS: 36415; 71046; 80053; 84439; 84443; 85025; 86141; 87430; 87636

== ENCOUNTER → 2022-09-18 | Outpatient (CLI) | payer BC ==
[~2022-09-18] MED LIST changes: +AZIT250T12 PO; +NYST1000 PO
--- NOTE | 2022-09-18 11:05 | Diagnostic Imaging Report ---
CLINICAL INDICATION: Patient has chronic low back pain. EXAM: MRI of the lumbar spine performed without IV contrast. Sequences include sagittal T2, sagittal T1, sagittal T2 fat-sat, and axial T2. COMPARISON: None. FINDINGS: There is no acute lumbar spine fracture or dislocation. There are minimal Modic type I degenerative signal changes involving the left side of the L5-S1 endplate region. There are Modic type II degenerative signal changes anteriorly involving the L5-S1 level. There is no significant paraspinal soft tissue abnormality. There is a 2.2 cm cyst involving the medial upper aspect of the right kidney. The visualized portions of the distal thoracic spinal cord, conus medullaris, and cauda equina nerve roots are unremarkable. The conus medullaris tip is seen at the upper L2 vertebral body level. There is no significant paraspinal soft tissue abnormality. L1-L2: Unremarkable. L2-L3: There is no significant disk bulge. There is no significant central spinal canal or neuroforaminal narrowing. L3-L4: There is no significant disk bulging. There is no significant central spinal canal or neuroforaminal narrowing. L4-L5: There is no significant central spinal canal or neuroforaminal narrowing. L5-S1: There is severe left facet arthropathy and moderate right facet arthropathy. There is mild bilateral neuroforaminal narrowing, left side more than the right. There is a small area of calcification anteriorly involving the disk. There is minimal disk bulging in the foraminal regions. IMPRESSION: There is lower lumbar spine degenerative disease with no significant central canal or neuroforaminal narrowing. There is no significant disk herniation. Dictated by: Dictated on workstation # [id number]
== END ==
LOC: RAD 09:18
PROVIDERS: ATTEND Anesthesiology
DX: M47.26 Other spondylosis with radiculopathy, lumbar region (principal)
CPT/HCPCS: 72148

== ENCOUNTER 2022-10-12 05:30 | Outpatient (CLI) | payer BC ==
[~2022-10-12] VITALS: Ht 162.6 cm; Wt 108.2 kg
== END 2022-10-12 09:23 ==
LOC: PREOP 05:30
PROVIDERS: ATTEND Otolaryngology Otolaryngology/Facial Plastic Surgery
DX: Z01.818 Encounter for other preprocedural examination (principal)